=== PATIENT | male | born 1930 | race Two or more races ===

== ENCOUNTER 2018-11-15 13:59 | Inpatient (IN) | payer MEDICARE ==
[~2018-11-15] VITALS: Ht 152.4 cm; Wt 40.0 kg
[2018-11-15] VITALS (22 sets, daily range): BP systolic 86–147; BP diastolic 59–105; PULSE 53–70; RESP 10–23; Ht 152.4 cm; Wt 40.0 kg
[2018-11-15] MEDS ORDERED: SOD CHLORIDE 0.9% 500 ML IV STA (14:02)
[2018-11-15] MEDS ORDERED: NORepinephrine 8MG/250 ML (PMX 250 ML IV STA (14:19)
[2018-11-15] MEDS ORDERED: CEFEPIME 2GM/50 ML (PMX) 50 ML IVPB STA (14:19)
[2018-11-15] MEDS ORDERED: SODIUM CHLORIDE 0.9% 1L BAG IV* STA (14:19)
[2018-11-15] MEDS ORDERED: METO-335 PO (14:28)
[2018-11-15] MEDS ORDERED: HYDR-3029 PO (14:28)
[2018-11-15] MEDS ORDERED: SERT25TA83 PO (14:29)
[2018-11-15] MEDS ORDERED: ESOM40CA PO (14:29)
[2018-11-15] MEDS ORDERED: RIVA15TA PO (14:29)
[2018-11-15] MEDS ORDERED: TRIA15CR55 TOP (14:29)
[2018-11-15] MEDS ORDERED: VANCOMYCIN 1 GM (PMX) 250 ML IVPB ONE (14:30)
[2018-11-15] MEDS ORDERED: QUET25TA33 PO (14:30)
[2018-11-15] MEDS ORDERED: NALOXONE (0.4 MG/ML) INJ IV ONE (14:30)
[2018-11-15] MEDS ORDERED: TAMS0.4C2 PO (14:30)
[2018-11-15] MEDS ORDERED: MEMA21CA PO (14:30)
[2018-11-15] MEDS ORDERED: DONE5TAB7 PO ×2 (14:31→14:32)
[2018-11-15] MEDS ORDERED: BIMA5DRO BOTH EYES (14:32)
[2018-11-15] MEDS ORDERED: BRIM15DR2 BOTH EYES (14:33)
[2018-11-15] MEDS ORDERED: LIDO700A45 TP (14:34)
[2018-11-15] MEDS ORDERED: FENTAnyl 50 MCG/ML VIAL ONE (15:05)
[2018-11-15] MEDS ORDERED: LIDOCAINE 1% (MDV) 20 ML INJ ONE (15:05)
[2018-11-15] MEDS ORDERED: FENTAnyl 50 MCG/ML VIAL IV ONE (15:30)
[2018-11-15] MEDS ORDERED: ACETAMINOPHEN 650 MG SUPP PR PRN (16:00)
[2018-11-15] MEDS ORDERED: ACETAMINOPHEN 325 MG TAB PO PRN (16:00)
[2018-11-15] MEDS ORDERED: ONDANSETRON 4 MG INJ IV PRN (16:00)
[2018-11-15] MEDS ORDERED: NACL 0.9% 3 ML SYG IV SCH (16:00)
--- NOTE | 2018-11-15 16:07 | ERD ---
ER Documentation Chief Complaint Chief Complaint ALOC x 1 hour responds to pain opens eyes when stimulated HPI This is an 79-year-old male with a prior history of dementia, hypertension, who presents with increased weakness, and confusion. Patient lives at home, 9 1 was called by a engineering document control clerk. History was limited secondary to patient's altered mental state, but EMS states that in route the patient was noted to be hypotensive. ROS All systems reviewed and are negative except as per history of present illness. Medications Home Meds Reported Medications Lidocaine (Lidocaine) 1 Each Adh..patch, 1 EACH TP DAILY 11/15/18 Brimonidine Tartrate* (Alphagan P*) 0.1%-15 Ml Opht Drops, 1 DROP BOTH EYES BID, #1 EA 11/15/18 Bimatoprost* (Lumigan*) 0.01%-5 Ml Opht Drops, 1 DROP BOTH EYES HS, EA 11/15/18 Donepezil* (Donepezil*) 5 Mg Tablet, 5 MG PO DAILY, #30 TAB 11/15/18 Memantine* (Namenda* XR) 21 Mg Cap.spr.24, 21 MG PO DAILY, #30 TAB 11/15/18 Quetiapine Fumarate* (Quetiapine Fumarate*) 25 Mg Tablet, 25 MG PO HS, TAB 11/15/18 Tamsulosin Hcl* (Tamsulosin Hcl*) 0.4 Mg Cap.er.24h, 0.4 MG PO HS, CAP 11/15/18 Esomeprazole Mag Trihydrate (Nexium) 40 Mg Capsule.dr, 40 MG PO DAILY, #30 CAP 11/15/18 Sertraline Hcl* (Sertraline Hcl*) 25 Mg Tablet, 25 MG PO DAILY, #30 TAB 11/15/18 Rivaroxaban* (Xarelto*) 15 Mg Tablet, 15 MG PO DAILY, TAB 11/15/18 Triamcinolone Acetonide* (Kenalog*) 0.1%-15GM Cr, 1 APPLIC TOP BID, #1 TUB 11/15/18 Metoprolol Succinate* (Toprol XL*) 25 Mg Tab.sr.24h, 25 MG PO DAILY, #30 TAB 11/15/18 Hydroxyzine Hcl* (Hydroxyzine Hcl*) 10 Mg Tablet, 10 MG PO BID PRN for ITCHING, #30 TAB 11/15/18 Discontinued Reported Medications Donepezil* (Donepezil*) 5 Mg Tablet, 5 MG PO DAILY, #30 TAB 11/15/18 Allergies Allergies: Coded Allergies: No Known Allergy (Unverified , 11/15/18) PMhx/Soc Hx Cardiac Disorders: Yes (htn, cholesterol) Hx Psychiatric Problems: No Hx Miscellaneous Medical Probl: No Hx Alcohol Use: Yes (occasionally in the past) Hx Substance Use: No Hx Tobacco Use: Yes Smoking Status: Former smoker Physical Exam Vitals Vital Signs Date Temp Pulse Resp B/P (MAP) Pulse Ox O2 O2 Flow FiO2 Time Delivery Rate 11/15/18 64 20 81/64 (70) 96 Room Air 15:55 11/15/18 60 18 144/72 96 Room Air 15:43 (96) 11/15/18 60 20 110/72 100 Mask 6.0 15:15 (85) 11/15/18 Simple 10 14:20 Mask 11/15/18 97.8 56 18 45/34 (38) 99 14:10 Physical Exam Const: Thin cachectic male Head: Atraumatic Eyes: Normal Conjunctiva, pupils are pink ENT: Normal External Ears, Nose and Mouth. Oral mucosa is dry Neck: Full range of motion. No meningismus. Resp: Clear to auscultation bilaterally Cardio: Regular rate and rhythm, no murmurs Abd: Soft, non tender, non distended. Normal bowel sounds Skin: No petechiae or rashes Back: No midline or flank tenderness Ext: No cyanosis, or edema Neur: Patient moves all 4 extremities, he was months of pain, he is Macedonian speaking, and appears to be saying some words although cannot ascertain if these are organized Psych: Unable to be assessed Result Diagram: 11/15/18 1425 11/15/18 1425 Results 24 hrs Laboratory Tests Test 11/15/18 14:25 11/15/18 14:29 White Blood Count 8.7 10^3/ul Red Blood Count 3.94 10^6/ul Hemoglobin 12.8 g/dl Hematocrit 39.3 % Mean Corpuscular Volume 99.7 fl Mean Corpuscular Hemoglobin 32.5 pg Mean Corpuscular Hemoglobin Concent 32.6 g/dl Red Cell Distribution Width 12.7 % Platelet Count 161 10^3/UL Mean Platelet Volume 9.2 fl Immature Granulocytes % 0.500 % Neutrophils % 60.7 % Lymphocytes % 32.6 % Monocytes % 6.0 % Eosinophils % 0.0 % Basophils % 0.2 % Nucleated Red Blood Cells % 0.0 /100WBC Immature Granulocytes # 0.040 10^3/ul Neutrophils # 5.3 10^3/ul Lymphocytes # 2.8 10^3/ul Monocytes # 0.5 10^3/ul Eosinophils # 0.0 10^3/ul Basophils # 0.0 10^3/ul Nucleated Red Blood Cells # 0.0 10^3/ul Prothrombin Time 24.7 Sec Prothrombin Time Ratio 1.9 INR International Normalized Ratio 2.22 Sodium Level 142 mmol/L Potassium Level 3.7 mmol/L Chloride Level 107 mmol/L Carbon Dioxide Level 26 mmol/L Anion Gap 9 Blood Urea Nitrogen 43 mg/dl Creatinine 1.14 mg/dl Est Glomerular Filtrat Rate mL/min mL/min Glucose Level 166 mg/dl Calcium Level 9.4 mg/dl Total Bilirubin 0.4 mg/dl Direct Bilirubin 0.00 mg/dl Indirect Bilirubin 0.4 mg/dl Aspartate Amino Transf (AST/SGOT) 25 IU/L Alanine Aminotransferase (ALT/SGPT) 12 IU/L Alkaline Phosphatase 77 IU/L Troponin I 0.012 ng/ml Total Protein 7.1 g/dl Albumin 3.6 g/dl Globulin 3.50 g/dl Albumin/Globulin Ratio 1.02 Salicylates Level < 1.0 mg/dl Acetaminophen Level < 10.0 ug/ml Ethyl Alcohol Level < 10.0 mg/dl POC Venous Lactate 3.2 mmol/L Current Medications Medications Dose Sig/Vicente Start Time Status Last (Trade) Ordered Route PRN Stop Time Admin Dose Reason Admin Sodium 500 ml @ Q1H STAT 11/15/18 DC 11/15/18 Chloride 500 mls/hr IV 14:02 11/15/18 14:40 15:01 Naloxone 0.4 mg ONCE ONCE 11/15/18 DC 11/15/18 HCl IV 14:30 11/15/18 14:30 (Narcan) 14:31 250 ml @ ONCE STAT 11/15/18 11/15/18 Norepinephrin 7.5 mls/hr IV 14:19 11/16/18 14:42 e 23:38 Sodium 1,500 ml BOLUS OVER 2 11/15/18 DC 11/15/18 Chloride HOURS STAT 14:19 11/15/18 14:41 (NS) IV* 14:21 Cefepime HCl 50 ml @ ONCE STAT 11/15/18 DC 11/15/18 100 mls/hr IVPB 14:19 11/15/18 14:41 14:48 Vancomycin 250 ml @ ONCE ONCE 11/15/18 11/15/18 HCl 125 mls/hr IVPB 14:30 11/15/18 15:48 16:29 Fentanyl 75 mcg ONCE ONCE 11/15/18 DC 11/15/18 (Sublimaze) IV 15:30 11/15/18 15:12 15:31 Lidocaine 20 ml STK-MED 11/15/18 DC (Xylocaine ONCE .ROUTE 15:05 11/15/18 1% (Mdv) 20 15:06 ml) Fentanyl 100 mcg STK-MED 11/15/18 DC (Sublimaze) ONCE .ROUTE 15:05 11/15/18 15:06 Sodium 1,000 ml @ Q10H IV 11/15/18 Chloride 100 mls/hr 15:36 IV Flush 3 ml PER 11/15/18 (NS 3 ml) PROTOCOL IV 16:00 Ondansetron 4 mg Q6H PRN 11/15/18 HCl (Zofran IV NAUSEA 16:00 Inj) AND/OR VOMITING 650 mg Q6H PRN 11/15/18 Acetaminophen PO PAIN 16:00 (Tylenol LEVEL 1-3 OR Tab) FEVER 650 mg Q6H PRN 11/15/18 Acetaminophen [place] PAIN 16:00 (Tylenol LEVEL 1-3 OR Supp) FEVER 40 mg DAILY@06 11/16/18 Pantoprazole IV 06:00 (Protonix Iv) Vancomycin VANCOMYCIN PER 11/15/18 UNV HCl (Vanco PER PHARMACY PROTOCOL XX 16:30 Iv Per Pharmacy) Cefepime HCl 50 ml @ Q12 IVPB 11/15/18 UNV 100 mls/hr 21:00 Procedures/MDM This 87-year-old male who presents with altered mental state and shock. I noticed that the patient had pinpoint pupils, trial of Narcan, however there was no response. CT brain was negative for acute intracranial findings, his lactate was noted 3.6. He had no signs of hypoxia, I do not suspect pulmonary embolism, cardiac ischemia is a consideration, however his EKG is nonischemic and his troponin is also negative. As sepsis is still in the differential, I feel is appropriate to treat with empiric broad-spectrum antibiotics. He was trialed with 30 cc/kg bolus of IV fluids, he did not respond to this and was started on pressors. He has no fever no leukocytosis, at this time he does not have a clear source of infection thus I do not suspect septic shock, the patient will be admitted for undifferentiated shock. EKG: Rate/Rhythm: Normal Sinus Rhythm QRS, ST, T-waves: No changes consistent w/ acute ischemia Impression: No evidence of ischemia or arrhythmia Critical Care Time: 35 minutes Treatments/Evaluations: Close monitoring and treatment of unstable vital signs, cardiorespiratory, and neurologic status, while maintaining tight balance of fluid, respiratory, and cardiac interventions. This time includes discussing the case with the patient and the patient's family. This time does not include all procedures stated elsewhere in this record. This time also includes reviewing old records, labs and radiological studies. This time includes examining and re- examining the patient. Additionally, this time also includes arranging care with admitting and consulting physicians. Central Line Placement by me: Patient consented, sterilely draped, full prep, gown, glove, mask, time out performed. Anesthesia: 1% lidocaine locally Location: Right IJ Device: Multiple lumen Technique: Seldinger technique. Secured with suture. Results: Venous return from all ports with easy saline flush. No complications. Guide wire retrieved and disposed of. [ED Ultrasound: Central line placed by me using concurrent ultrasound guidance. [Chest X-ray 1V Interpreted by me: Central line in SVC, Normal soft tissue, No evidence of pneumothorax.] Departure Diagnosis: Primary Impression: Altered level of consciousness Additional Impression: Shock Condition: Critical SWETHA MALDONADO MD Nov 15, 2018 16:07
[2018-11-15] MEDS ORDERED: VANCOMYCIN IV PER PHARMACY XX SCH (16:30)
--- NOTE | 2018-11-15 16:40 | HP ---
Date/Time of Note Date/Time of Note DATE: 11/15/18 TIME: 16:40 Assessment/Plan VTE Prophylaxis Pharmacological prophylaxis: other Lines/Catheters IV Catheter Type (from Nrs): Saline Lock Assessment/Plan Hospital Course Objective Physical exam General: Patient is laying in bed and answers some questions in Azeri, 1 word answers Mentation: Patient is alert but not oriented Head: Normocephalic atraumatic Eyes: EOMI, pupils reactive to light Neck: Supple, nontender, midline Respiratory: Clear to auscultation bilaterally Cardiovascular: regular rate, no obvious murmurs Gastrointestinal: non-tender to palpation, bowel sounds heard. Neurological: Moves all extremities spontaneously Skin: Scaling on the thighs seen, no obvious open sores Assessment and plan Severe sepsis -Appears to be responding to fluid -Continue NS -Blood cultures, lactic acid noted -Broad-spectrum IV antibiotic Acute toxic metabolic encephalopathy -Likely volume depleted -With fluids already improving in mentation Bradycardia -Mild, patient is on beta-owen at home -Hold beta-owen for now Hypotension -Likely due to long depletion -Continue septic workup with IV antibiotic and cultures -Pressors as needed -IV fluids Syncope -Patient found down on floor, -CT negative -Patient had remote history of knee surgery, will get knee x-ray to confirm if there is a implant or not before getting MRI -Ultrasound carotid -Echo pending Moderate to severe dementia -According to son-in-law patient has had multiple instances of getting lost on a bus -Continue home meds when able Atrial fibrillation -Likely paroxysmal -On metoprolol and Xarelto at home -Hold Xarelto as patient is a fall risk at this time GERD -Protonix Mood disorder -Continue home meds when able BPH -Continue home meds when able Disposition -ICU care for now -Continue fluids, pressors as necessary -Continue infectious workup for severe sepsis Result Diagram: 11/15/18 1425 11/15/18 1425 Results 24hrs Laboratory Tests Test 11/15/18 14:25 11/15/18 14:29 White Blood Count 8.7 Red Blood Count 3.94 L Hemoglobin 12.8 L Hematocrit 39.3 L Mean Corpuscular Volume 99.7 Mean Corpuscular Hemoglobin 32.5 Mean Corpuscular Hemoglobin Concent 32.6 Red Cell Distribution Width 12.7 Platelet Count 161 Mean Platelet Volume 9.2 Immature Granulocytes % 0.500 H Neutrophils % 60.7 Lymphocytes % 32.6 Monocytes % 6.0 Eosinophils % 0.0 Basophils % 0.2 Nucleated Red Blood Cells % 0.0 Immature Granulocytes # 0.040 H Neutrophils # 5.3 Lymphocytes # 2.8 Monocytes # 0.5 Eosinophils # 0.0 Basophils # 0.0 Nucleated Red Blood Cells # 0.0 Prothrombin Time 24.7 H Prothrombin Time Ratio 1.9 INR International Normalized Ratio 2.22 Sodium Level 142 Potassium Level 3.7 Chloride Level 107 Carbon Dioxide Level 26 Anion Gap 9 Blood Urea Nitrogen 43 H Creatinine 1.14 Est Glomerular Filtrat Rate mL/min Glucose Level 166 Calcium Level 9.4 Total Bilirubin 0.4 Direct Bilirubin 0.00 Indirect Bilirubin 0.4 Aspartate Amino Transf (AST/SGOT) 25 Alanine Aminotransferase (ALT/SGPT) 12 L Alkaline Phosphatase 77 Troponin I 0.012 Total Protein 7.1 Albumin 3.6 Globulin 3.50 H Albumin/Globulin Ratio 1.02 Salicylates Level < 1.0 L Acetaminophen Level < 10.0 L Ethyl Alcohol Level < 10.0 H POC Venous Lactate 3.2 *H HPI/ROS Admit Date/Time Admit Date/Time Hx of Present Illness Patient is a Azeri male with past medical history significant for A. fib on Xarelto, dementia, BPH, mood disorder, GERD who presents to [facility] after caregiver found him on the floor in the bathroom. According to son-in-law at bedside patient's last well time was approximately yesterday when the caregiver came to the apartment to give him his medication and took his food. Currently patient responds in Azeri which is significantly better than when he was brought in by EMS. Per ED physician patient's blood pressure was originally as low as in the 40s however currently it is in the 80s with a mean arterial pressure above 65. Patient currently can speak in response to some questions however is not fully coherent yet at this time. Patient cannot fully participate in a physical exam nor can he fully move at his full strength. Patient does not to be in any severe pain in any extremities or in the stomach or chest from what can be observed. HPI is limited due to patient's neurological status PMH/Family/Social Past Medical History Medications Current Medications Norepinephrine 250 ml @ 7.5 mls/hr ONCE STAT IV Last administered on 11/15/18at 14:42; Admin Dose 3.75 MLS/HR; Start 11/15/18 at 14:19; Stop 11/16/18 at 23:38 Sodium Chloride 1,000 ml @ 100 mls/hr Q10H IV ; Start 11/15/18 at 15:36 IV Flush (NS 3 ml) 3 ml PER PROTOCOL IV ; Start 11/15/18 at 16:00 Ondansetron HCl (Zofran Inj) 4 mg Q6H PRN IV NAUSEA AND/OR VOMITING; Start 11/15/18 at 16:00 Acetaminophen (Tylenol Tab) 650 mg Q6H PRN PO PAIN LEVEL 1-3 OR FEVER; Start 11/15/18 at 16:00 Acetaminophen (Tylenol Supp) 650 mg Q6H PRN [place] PAIN LEVEL 1-3 OR FEVER; Start 11/15/18 at 16:00 Pantoprazole (Protonix Iv) 40 mg DAILY@06 IV ; Start 11/16/18 at 06:00 Vancomycin HCl (Vanco Iv Per Pharmacy) VANCOMYCIN PER PHARMACY PER PROTOCOL XX ; Start 11/15/18 at 16:30; Status UNV Cefepime HCl 50 ml @ 100 mls/hr Q12 IVPB ; Start 11/15/18 at 21:00; Status UNV Coded Allergies: No Known Allergy (Unverified , 11/15/18) Social History Smoking Status: Former smoker Exam/Review of Systems Vital Signs Vitals Vital Signs Date Temp Pulse Resp B/P (MAP) Pulse Ox O2 O2 Flow FiO2 Time Delivery Rate 11/15/18 64 20 81/64 (70) 96 Room Air 15:55 11/15/18 6.0 15:15 11/15/18 97.8 14:10 SWETHA GARDUNO Nov 15, 2018 16:40
[2018-11-15] MEDS: SOD CHLORIDE 0.9% 1,000 ML IV SCH (18:21)
[2018-11-15] MEDS ORDERED: CEFEPIME 1GM/50 ML (PMX) 50 ML IVPB SCH (21:00)
[2018-11-16] VITALS (28 sets, daily range): BP systolic 94–145; BP diastolic 54–91; PULSE 54–76; RESP 10–22
[2018-11-16] MEDS: CALAMINE/PRAMOXINE LOT 180 ML BTL TOP PRN ×3 (02:36→22:18)
[2018-11-16] MEDS: SOD CHLORIDE 0.9% 1,000 ML IV SCH (02:44)
[2018-11-16] MEDS: PANTOPRAZOLE 40 MG INJ IV SCH (05:55)
[2018-11-16] MEDS: CEFEPIME 1GM/50 ML (PMX) 50 ML IVPB SCH (09:21)
[2018-11-16] MEDS: SOD CHLORIDE 0.45% 1,000 ML IV SCH ×2 (09:21→22:17)
--- NOTE | 2018-11-16 12:13 | PN ---
Date/Time of Note Date/Time of Note DATE: 11/16/18 TIME: 12:10 Objective Vitals Vital Signs Date Temp Pulse Resp B/P (MAP) Pulse Ox O2 O2 Flow FiO2 Time Delivery Rate 11/16/18 70 17 117/77 100 Nasal 3.0 10:00 (90) Cannula 11/16/18 99.2 08:00 Intake and Output 11/15/18 11/15/18 11/16/18 1515:00 23:00 07:00 IntakeIntake Total 526.2 ml 903.7 ml OutputOutput Total 410 ml 340 ml BalanceBalance 116.2 ml 563.7 ml Results Result Diagram: 11/16/18 0330 11/16/18 0330 Medications Medications Current Medications Norepinephrine 250 ml @ 7.5 mls/hr ONCE STAT IV Last administered on 11/15/18at 14:42; Admin Dose 3.75 MLS/HR; Start 11/15/18 at 14:19; Stop 11/16/18 at 23:38 IV Flush (NS 3 ml) 3 ml PER PROTOCOL IV ; Start 11/15/18 at 16:00 Ondansetron HCl (Zofran Inj) 4 mg Q6H PRN IV NAUSEA AND/OR VOMITING; Start 11/15/18 at 16:00 Acetaminophen (Tylenol Tab) 650 mg Q6H PRN PO PAIN LEVEL 1-3 OR FEVER; Start 11/15/18 at 16:00 Acetaminophen (Tylenol Supp) 650 mg Q6H PRN [place] PAIN LEVEL 1-3 OR FEVER; Start 11/15/18 at 16:00 Pantoprazole (Protonix Iv) 40 mg DAILY@06 IV Last administered on 11/16/18at 05:55; Admin Dose 40 MG; Start 11/16/18 at 06:00 Vancomycin HCl (Vanco Iv Per Pharmacy) VANCOMYCIN PER PHARMACY PER PROTOCOL XX ; Start 11/15/18 at 16:30 Cefepime HCl 50 ml @ 100 mls/hr DAILY IVPB Last administered on 11/16/18at 09:21; Admin Dose 100 MLS/HR; Start 11/16/18 at 09:00 Calamine/Pramoxine (Caladryl Lotion) 1 applic QID PRN TOP ITCHING Last administered on 11/16/18at 09:24; Admin Dose 1 APPLIC; Start 11/16/18 at 02:30 Sodium Chloride 1,000 ml @ 70 mls/hr [id number] IV Last administered on 11/16/18at 09:21; Admin Dose 70 MLS/HR; Start 11/16/18 at 08:00 Vancomycin HCl 100 ml @ 100 mls/hr Q24H IVPB ; Start 11/16/18 at 18:00 Hydrocortisone (Hydrocortisone 0.5% Cr) 1 applic BID TOP ; Start 11/16/18 at 11:30 Diphenhydramine HCl (Benadryl) 25 mg Q6H PRN PO ITCHING; Start 11/16/18 at 11:30 Valacyclovir HCl (Valtrex) 1,000 mg Q24H PO ; Start 11/16/18 at 12:00; Stop 11/17/18 at 12:01 VTE Prophylaxis Risk score (from Ns)>0 risk: 7 [place] [facility] [place] Lines/Catheters IV Catheter Type: Alas in Place: No Assessment/Plan Hospital Course subjective doing much better, more awake Objective Physical exam General: Patient is laying in bed and answers some questions in Yakut and some faroese Mentation: Patient is alert and oriented x 2 Head: Normocephalic atraumatic Eyes: EOMI, pupils reactive to light Neck: Supple, nontender, midline Respiratory: Clear to auscultation bilaterally Cardiovascular: regular rate, no obvious murmurs Gastrointestinal: non-tender to palpation, bowel sounds heard. Neurological: Moves all extremities spontaneously Skin: Scaling on the thighs seen, no obvious open sores Assessment and plan Severe sepsis -resolving -Continue ivf for now -Blood cultures, lactic acid noted -Broad-spectrum IV antibiotic for now Acute toxic metabolic encephalopathy-resolving -Likely volume depleted -With fluids already improving in mentation Bradycardia -Mild, patient is on beta-owen at home -Hold beta-owen for now Hypotension -Likely due to long depletion -Continue septic workup with IV antibiotic and cultures -Pressors as needed, off pressors for the past 12 hours -IV fluids Syncope -Patient found down on floor, -CT negative -Patient had remote history of knee surgery, xray not showing metal, mri pending -Ultrasound carotid -Echo pending -mri pending Moderate to severe dementia -According to son-in-law patient has had multiple instances of getting lost on a bus -Continue home meds when able Atrial fibrillation -Likely paroxysmal -On metoprolol and Xarelto at home -Hold Xarelto as patient is a fall risk at this time GERD -Protonix Mood disorder -Continue home meds when able BPH -Continue home meds when able Disposition -ICU care for now, downgrade possible if BP holds -more than 40 minutes of critical care time spent on this encounter -Continue fluids, pressors as necessary -Continue infectious workup for severe sepsis -patient will likely need placement per son-in-law, PT/OT pending, CM notified SWETHA GARDUNO Nov 16, 2018 12:13
[2018-11-16] MEDS: HYDROCORTISONE 0.5% 28.35 GM CR TOP SCH ×2 (12:58→21:00)
[2018-11-16] MEDS: VALACYCLOVIR 500 MG TAB PO SCH (12:58)
--- NOTE | 2018-11-16 15:31 | RADRPT ---
Echocardiogram Report Patient Name: JN BURDICK Gender: Male Date: 1930 Study Date: 16-Nov-2018 Vice President Of Development: [facility] Location: [place] Height(Cm): 152 Weight(Kg): 40 BSA: 1.30 Ref. Physician: SWETHA GARDUNO Quality: Technically Difficult Study Procedures: Transthoracic echocardiogram with 2D, M-Mode, and doppler examination, no subcostal images. Indications: Syncope. 2D/M Mode Doppler Measurement Value Normal Ranges Measurement Value Normal Ranges LVIDd 2D 3.4 3.5 - 5.6 cm AV Peak Ignacio 1.3 m/sec LVIDs 2D 1.8 2.1 - 4.1 cm AV Peak PG 7.0 mmHg LVPWd 2D 1.3 0.6 - 1.1 cm LVOT Peak Ignacio 0.8 m/sec IVSd 2D 1.3 0.6 - 1.1 cm LVOT Peak PG 3.0 mmHg AoR Diam 2D 3.7 2.0 - 3.7 cm MV E Peak Ignacio 0.6 m/sec LA/Ao 2D 1 0 - 1 MV A Peak Ignacio 0.7 m/sec LA Dimen 2D 3.7 2.3 - 4.0 cm MV E/A 0.7 MV PHT 70.0 msec MV Decel Time 238 msec MV Decel [place] 2 Med E` Ignacio 0.1 m/sec MV E/A 0.7 MV PHT 70.0 msec MVA PHT 3.1 cm2 TR Peak Ignacio 3.0 m/sec TR Peak PG 35.0 mmHg PV Peak Ignacio 0.9 m/sec PV Peak PG 3.0 mmHg RVSP 45.0 mmHg Findings Left Ventricle: Normal left ventricular systolic function. Normal left ventricular cavity size. Mild concentric left ventricular hypertrophy. Ejection fraction is visually estimated at 0 %. Tissue Doppler/Mitral Doppler indices are consistent with impaired relaxation (Stage I diastolic dysfunction). E/E`=10. Right Ventricle: Normal right ventricular size. Normal right ventricular systolic function. Left Atrium: The left atrium is normal in size. Right Atrium: The right atrium is normal in size. Atrial Septum: Not well visualized. Mitral Valve: Normal appearance and function of the mitral valve with trace physiologic regurgitation. Aortic Valve: No significant aortic stenosis or insufficiency. Normal trileaflet aortic valve structure. Aortic sclerosis without significant stenosis. Tricuspid Valve: Normal appearance of the tricuspid valve. Estimated peak PA systolic pressure 45 mmHg. There is mild to moderate tricuspid regurgitation. Pulmonic Valve: Pulmonic valve not well visualized. There is trace to mild pulmonic regurgitation. Pericardium: Normal pericardium with no significant pericardial effusion. Aorta: Normal aortic root. IVC: The IVC is not well visualized. Pulmonary Artery: Normal pulmonary artery size. Conclusions Normal left ventricular systolic function. Normal left ventricular cavity size. Mild concentric left ventricular hypertrophy. Ejection fraction is visually estimated at 0 %. Tissue Doppler/Mitral Doppler indices are consistent with impaired relaxation (Stage I diastolic dysfunction). E/E`=10. Normal appearance and function of the mitral valve with trace physiologic regurgitation. No significant aortic stenosis or insufficiency. Normal trileaflet aortic valve structure. Aortic sclerosis without significant stenosis. Normal appearance of the tricuspid valve. Estimated peak PA systolic pressure 45 mmHg. There is mild to moderate tricuspid regurgitation. Electronically Signed By: Jude Conde 16-Nov-2018 15:30:39 -0800 Patient Name: JN BURDICK Study Date: 16-Nov-2018 [id number]
[2018-11-16] MEDS: DIPHENHYDRAMINE 25 MG CAP PO PRN (17:20)
[2018-11-16] MEDS ORDERED: VANCOMYCIN 500 MG (PMX) 100 ML IVPB SCH (18:00)
[2018-11-16] MEDS ORDERED: LORAZEPAM 2 MG INJ IV ONE (20:00)
[2018-11-16] MEDS ORDERED: LORAZEPAM 4 MG/ML VIAL ONE (20:01)
[2018-11-16] MEDS ORDERED: LORAZEPAM 4 MG/ML VIAL IV SCH (20:15)
[2018-11-16] MEDS ORDERED: DIPHENHYDRAMINE 50 MG INJ IV ONE (21:30)
[2018-11-16] MEDS ORDERED: HYDROmorphONE 1 MG/ML SYG IV ONE (21:30)
[2018-11-17] VITALS (18 sets, daily range): BP systolic 107–168; BP diastolic 59–88; PULSE 47–146; RESP 16–18
[2018-11-17] MEDS: DIPHENHYDRAMINE 25 MG CAP PO PRN (03:00)
[2018-11-17] MEDS ORDERED: DIPHENHYDRAMINE 50 MG INJ IV ONE (04:00)
[2018-11-17] MEDS: PANTOPRAZOLE 40 MG INJ IV SCH (05:34)
[2018-11-17] MEDS ORDERED: SOD CHLORIDE 0.9% 500 ML IV ONE (06:30)
[2018-11-17] MEDS: HYDROCORTISONE 0.5% 28.35 GM CR TOP SCH ×2 (09:26→21:53)
[2018-11-17] MEDS: CEFEPIME 1GM/50 ML (PMX) 50 ML IVPB SCH (09:27)
[2018-11-17] MEDS: SOD CHLORIDE 0.45% 1,000 ML IV SCH (13:10)
[2018-11-17] MEDS ORDERED: hydrOXYzine HCL 10 MG TAB PO PRN (15:00)
[2018-11-17] MEDS ORDERED: METOPROLOL 25 MG TAB PO SCH (15:00)
--- NOTE | 2018-11-17 15:14 | PN ---
Date/Time of Note Date/Time of Note DATE: 11/17/18 TIME: 14:24 Assessment/Plan VTE Prophylaxis Risk score (from Nsg)>0 risk: 8 SCD applied (from Ns): Yes Pharmacological prophylaxis: LMWH Lines/Catheters IV Catheter Type (from Nrsg): Peripheral IV Urinary Cath still in place: Yes Reason Cath still needed: other (indicate) Assessment/Plan Assessment/Plan 1. Hypotension from dehydration, improved 2. Dehydration resolved 3. Lactic acidosis from dehydration resolved with IVF 4. Syncope versus mechanical fall, negative MRI brain/echo cand carotid US, more likely a mechanical fall 5. Acute toxic metabolic encephalopathy-resolved 6. Paroxysmal SVT, metoprolol, hold for HR<55 7. Moderate to severe dementia 8. Atrial fibrillation, likely paroxysmal, aspirin instead of anticoagulants due to risk of fall 9. GERD, Protonix 10. Mood disorder, Continue home meds when able 11. BPH, flomax 12. Glaucoma, on eye drops 13. Anemia, chronic 14. No evidence of infection, d/c antibiotics Result Diagram: 11/17/18 0532 11/17/18 0532 Results 24hrs Laboratory Tests Test 11/17/18 05:32 White Blood Count 7.8 # Red Blood Count 3.22 L Hemoglobin 10.5 L Hematocrit 32.0 L Mean Corpuscular Volume 99.4 Mean Corpuscular Hemoglobin 32.6 Mean Corpuscular Hemoglobin Concent 32.8 Red Cell Distribution Width 12.7 Platelet Count 114 L Mean Platelet Volume 9.3 Immature Granulocytes % 0.300 Neutrophils % 73.2 Lymphocytes % 18.3 Monocytes % 8.0 Eosinophils % 0.1 Basophils % 0.1 Nucleated Red Blood Cells % 0.0 Immature Granulocytes # 0.020 Neutrophils # 5.7 Lymphocytes # 1.4 Monocytes # 0.6 Eosinophils # 0.0 Basophils # 0.0 Nucleated Red Blood Cells # 0.0 Sodium Level 143 Potassium Level 3.5 Chloride Level 109 Carbon Dioxide Level 27 Anion Gap 7 Blood Urea Nitrogen 26 H Creatinine 0.73 Est Glomerular Filtrat Rate mL/min Glucose Level 78 Calcium Level 8.3 L Phosphorus Level 2.4 L Magnesium Level 2.0 Subjective 24 Hr Interval Summary Free Text/Dictation afebrile, talked with the son at bedside Exam/Review of Systems Vital Signs Vitals Vital Signs Date Temp Pulse Resp B/P (MAP) Pulse Ox O2 O2 Flow FiO2 Time Delivery Rate 11/17/18 59 12:43 11/17/18 97.6 18 127/79 100 Nasal 12:00 (95) Cannula 11/17/18 2.0 08:30 Intake and Output 11/16/18 11/16/18 11/17/18 1515:00 23:00 07:00 IntakeIntake Total 790 ml 290 ml 600 ml OutputOutput Total 300 ml 100 ml 400 ml BalanceBalance 490 ml 190 ml 200 ml Exam Constitutional: alert, frail Head: normocephalic, atraumatic Eyes: nl conjunctiva, EOMI, nl lids, nl sclera, PERRL ENMT: nl external ears & nose, nl lips & teeth, nl nasal mucosa & septum Neck: supple, non-tender Respiratory: clear to auscultation, normal air movement; No congested cough, No crackles/rales, No diminished breath sounds, No intercostal retraction, No labored breathing, No respirations, No tactile fremitus, No wheezing, No other Cardiovascular: regular rate and rhythm, nl pulses; No bruits, No diastolic murmur, No edema, No gallop, No irregular rhythm, No jugular venous distention (JVD), No murmurs/extra sounds, No rub, No systolic murmur, No S3, No S4, No other Gastrointestinal: soft, nl liver, spleen, non-tender; No ascites, No bowel sounds, No distended, No firm, No hepatomegaly, No mass, No rebound or guarding, No splenomegaly, No surgical scars, No tender, No other Musculoskeletal: nl extremities to inspection Extremities: normal pulses; No calf tenderness, No cyanosis, No clubbing, No edema, No pitting pedal edema, No palpable cord, No tenderness, No other Neurological: ASSISTANT PROSECUTING ATTORNEY II-XII intact, confused Medications Medications Current Medications IV Flush (NS 3 ml) 3 ml PER PROTOCOL IV ; Start 11/15/18 at 16:00 Ondansetron HCl (Zofran Inj) 4 mg Q6H PRN IV NAUSEA AND/OR VOMITING; Start 11/15/18 at 16:00 Acetaminophen (Tylenol Tab) 650 mg Q6H PRN PO PAIN LEVEL 1-3 OR FEVER; Start 11/15/18 at 16:00 Acetaminophen (Tylenol Supp) 650 mg Q6H PRN [place] PAIN LEVEL 1-3 OR FEVER; Start 11/15/18 at 16:00 Pantoprazole (Protonix Iv) 40 mg DAILY@06 IV Last administered on 11/17/18 05:34; Admin Dose 40 MG; Start 11/16/18 at 06:00 Vancomycin HCl (Vanco Iv Per Pharmacy) VANCOMYCIN PER PHARMACY PER PROTOCOL XX ; Start 11/15/18 at 16:30 Cefepime HCl 50 ml @ 100 mls/hr DAILY IVPB Last administered on 11/17/18 09:27; Admin Dose 100 MLS/HR; Start 11/16/18 at 09:00 Calamine/Pramoxine (Caladryl Lotion) 1 applic QID PRN TOP ITCHING Last administered on 11/16/18 22:18; Admin Dose 1 APPLIC; Start 11/16/18 at 02:30 Sodium Chloride 1,000 ml @ 70 mls/hr [id number] IV Last administered on 11/17/18 13:10; Admin Dose 70 MLS/HR; Start 11/16/18 at 08:00 Vancomycin HCl 100 ml @ 100 mls/hr Q24H IVPB Last administered on 11/16/18 17:20; Admin Dose 100 MLS/HR; Start 11/16/18 at 18:00 Hydrocortisone (Hydrocortisone 0.5% Cr) 1 applic BID TOP Last administered on 11/17/18 09:26; Admin Dose 1 APPLIC; Start 11/16/18 at 11:30 Diphenhydramine HCl (Benadryl) 25 mg Q6H PRN PO ITCHING Last administered on 11/17/18 03:00; Admin Dose 25 MG; Start 11/16/18 at 11:30 SOL NELSON MD Nov 17, 2018 14:34
[2018-11-17] MEDS: NS + KCL 20 MEQ 1,000 ML IV SCH (15:32)
[2018-11-17] MEDS: SERTRALINE 50 MG TAB PO SCH (15:34)
[2018-11-17] MEDS: VALACYCLOVIR 500 MG TAB PO SCH (15:34)
[2018-11-17] MEDS: ENOXAPARIN 30 MG/0.3 ML SYG SC SCH (15:57)
[2018-11-17] MEDS ORDERED: VANCOMYCIN 750 MG (PMX) 250 ML IVPB SCH (16:00)
[2018-11-17] MEDS: DONEPEZIL 5 MG TAB PO SCH (18:01)
[2018-11-17] MEDS: BRIMONIDINE 0.1% 5 ML OPH BOTH EYES SCH (18:01)
[2018-11-17] MEDS: LATANOPROST 0.005% 2.5 ML OPH BOTH EYES SCH (21:53)
[2018-11-17] MEDS: TAMSULOSIN (SR) 0.4 MG CAP PO SCH (21:53)
[2018-11-18] VITALS (10 sets, daily range): BP systolic 150–180; BP diastolic 74–91; PULSE 53–85; RESP 16–18
[2018-11-18] MEDS: BRIMONIDINE 0.1% 5 ML OPH BOTH EYES SCH ×3 (01:28→21:16)
[2018-11-18] MEDS: NS + KCL 20 MEQ 1,000 ML IV SCH ×3 (01:28→21:16)
[2018-11-18] MEDS: PANTOPRAZOLE 40 MG INJ IV SCH (06:46)
[2018-11-18] MEDS: DONEPEZIL 5 MG TAB PO SCH (09:03)
[2018-11-18] MEDS: SERTRALINE 50 MG TAB PO SCH (09:03)
[2018-11-18] MEDS: HYDROCORTISONE 0.5% 28.35 GM CR TOP SCH ×2 (09:04→21:16)
[2018-11-18] MEDS: ENOXAPARIN 30 MG/0.3 ML SYG SC SCH (09:09)
--- NOTE | 2018-11-18 15:25 | PN ---
Date/Time of Note Date/Time of Note DATE: 11/18/18 TIME: 15:16 Assessment/Plan VTE Prophylaxis Risk score (from Ns)>0 risk: 6 SCD applied (from Ns): Yes Pharmacological prophylaxis: LMWH Lines/Catheters IV [facility]ter Type (from [facility]): Peripheral IV Urinary Cath still in place: No Assessment/Plan Assessment/Plan 1. Likely tachybrady arrhythmia, long run of PSVT on 11/16/2018, developed sinus bradycardia due to 42 after one dose of metoprolol 25 mg, cardiology consultation with Dr. Mercedes 2. Hypotension from dehydration, resolved 3. Dehydration resolved 4. Lactic acidosis from dehydration resolved with IVF 5. Syncope versus mechanical fall, negative MRI brain/echo cand carotid US, more likely a mechanical fall 6. Acute toxic metabolic encephalopathy-resolved 7. Moderate to severe dementia 8. Atrial fibrillation, likely paroxysmal, aspirin instead of anticoagulants due to risk of fall 9. GERD, Protonix 10. Mood disorder, Continue home meds when able 11. BPH, flomax 12. Glaucoma, on eye drops 13. Anemia, chronic 14. No evidence of infection, d/c antibiotics 11/17/2018 15. DVT prophylaxis: lovenox Result Diagram: 11/18/18 0703 11/18/18 0703 Results 24hrs Laboratory Tests Test 11/18/18 07:03 White Blood Count 7.1 Red Blood Count 3.62 L Hemoglobin 11.6 L Hematocrit 35.1 L Mean Corpuscular Volume 97.0 Mean Corpuscular Hemoglobin 32.0 Mean Corpuscular Hemoglobin Concent 33.0 Red Cell Distribution Width 12.2 Platelet Count 125 L Mean Platelet Volume 9.6 Immature Granulocytes % 0.300 Neutrophils % 74.0 Lymphocytes % 19.3 Monocytes % 6.3 Eosinophils % 0.0 Basophils % 0.1 Nucleated Red Blood Cells % 0.0 Immature Granulocytes # 0.020 Neutrophils # 5.3 Lymphocytes # 1.4 Monocytes # 0.5 Eosinophils # 0.0 Basophils # 0.0 Nucleated Red Blood Cells # 0.0 Sodium Level 138 Potassium Level 3.7 Chloride Level 105 Carbon Dioxide Level 27 Anion Gap 6 Blood Urea Nitrogen 13 # Creatinine 0.56 L Est Glomerular Filtrat Rate mL/min Glucose Level 88 Calcium Level 8.2 L Subjective 24 Hr Interval Summary Free Text/Dictation full alert, no distress, demented Exam/Review of Systems Vital Signs Vitals Vital Signs Date Temp Pulse Resp B/P (MAP) Pulse Ox O2 O2 Flow FiO2 Time Delivery Rate 11/18/18 60 14:13 11/18/18 97.8 16 153/79 91 11:50 (103) 11/18/18 Nasal 2.0 08:30 Cannula Intake and Output 11/17/18 11/17/18 11/18/18 1515:00 23:00 07:00 IntakeIntake Total 50 ml 480 ml 218 ml OutputOutput Total 650 ml 1700 ml BalanceBalance 50 ml -170 ml -1482 ml Exam Constitutional: alert, well developed Head: normocephalic, atraumatic Eyes: nl conjunctiva, EOMI, nl lids, PERRL ENMT: nl external ears & nose, nl lips & teeth, nl nasal mucosa & septum Neck: supple, non-tender Respiratory: clear to auscultation, normal air movement; No congested cough, No crackles/rales, No diminished breath sounds, No intercostal retraction, No labored breathing, No respirations, No tactile fremitus, No wheezing, No other Cardiovascular: regular rate and rhythm, nl pulses; No bruits, No diastolic murmur, No edema, No gallop, No irregular rhythm, No jugular venous distention (JVD), No murmurs/extra sounds, No rub, No systolic murmur, No S3, No S4, No other Gastrointestinal: soft, nl liver, spleen, non-tender Musculoskeletal: nl extremities to inspection Extremities: normal pulses; No calf tenderness, No cyanosis, No clubbing, No edema, No pitting pedal edema, No palpable cord, No tenderness, No other Neurological: SHIP MANAGER II-XII intact, nl speech, nl strength Medications Medications Current Medications IV Flush (NS 3 ml) 3 ml PER PROTOCOL IV ; Start 11/15/18 at 16:00 Ondansetron HCl (Zofran Inj) 4 mg Q6H PRN IV NAUSEA AND/OR VOMITING; Start 11/15/18 at 16:00 Acetaminophen (Tylenol Tab) 650 mg Q6H PRN PO PAIN LEVEL 1-3 OR FEVER; Start 11/15/18 at 16:00 Acetaminophen (Tylenol Supp) 650 mg Q6H PRN [place] PAIN LEVEL 1-3 OR FEVER; Start 11/15/18 at 16:00 Pantoprazole (Protonix Iv) 40 mg DAILY@06 IV Last administered on 11/18/18 06:46; Admin Dose 40 MG; Start 11/16/18 at 06:00 Calamine/Pramoxine (Caladryl Lotion) 1 applic QID PRN TOP ITCHING Last ad ministered on 11/16/18 22:18; Admin Dose 1 APPLIC; Start 11/16/18 at 02:30 Hydrocortisone (Hydrocortisone 0.5% Cr) 1 applic BID TOP Last administered on 11/18/18 09:04; Admin Dose 1 APPLIC; Start 11/16/18 at 11:30 Diphenhydramine HCl (Benadryl) 25 mg Q6H PRN PO ITCHING Last administered on 11/17/18 03:00; Admin Dose 25 MG; Start 11/16/18 at 11:30 Potassium Chloride/Sodium Chloride 1,000 ml @ 100 mls/hr Q10H IV Last administered on 11/18/18 11:00; Admin Dose 100 MLS/HR; Start 11/17/18 at 15:00 Latanoprost (Xalatan) 1 drop HS BOTH EYES Last administered on 11/17/18 21:53; Admin Dose 1 DROP; Start 11/17/18 at 21:00 Brimonidine Tartrate (Alphagan P 0.1%) 1 drop BID BOTH EYES Last administered o n 11/18/18 09:02; Admin Dose 1 DROP; Start 11/17/18 at 16:30 Donepezil HCl (Aricept) 5 mg DAILY PO Last administered on 11/18/18 09:03; Admin Dose 5 MG; Start 11/17/18 at 16:30 Hydroxyzine HCl (Atarax) 10 mg BID PRN PO ITCHING; Start 11/17/18 at 15:00 Sertraline HCl (Zoloft) 25 mg DAILY PO Last administered on 11/18/18 09:03; Admin Dose 25 MG; Start 11/17/18 at 15:00 Tamsulosin HCl (Flomax) 0.4 mg HS PO Last administered on 11/17/18 21:53; Admin Dose 0.4 MG; Start 11/17/18 at 21:00 Enoxaparin Sodium (Lovenox) 30 mg DAILY SC Last administered on 11/18/18at 09:09; Admin Dose 30 MG; Start 11/17/18 at 15:00 SOL NELSON MD Nov 18, 2018 15:25
--- NOTE | 2018-11-18 15:55 | CONS ---
Date/Time of Note Date/Time of Note DATE: 11/18/18 TIME: 15:40 Assessment/Plan Assessment/Plan Hospital Course 87 yo admitted after being found down on the ground, thought to be a mechanical fall per hospitalist notes, treated for dehydration. Course complicated by SVT (with possible afib at the onset) due to beta owen withdrawal, and then when dosed with a higher than home dose of metoprolol had sinus bradycardia in the 40's. Assessment/Plan Impression: Dehydration/fall SVT, paroxysmal, due to beta owen withdrawal Sinus bradycardia, in the 40's, when given a higher dose of metoprolol here in the hospital than what he receives at home Probable paroxysmal afib, was on Xarelto Severe dementia Recommendations: Patient takes metoprolol succinate 25 mg once a day at home. Will give met oprolol tartrate 12.5 mg bid here in the hospital, and observe. If he tolerates then would resume home metoprolol succinate 25 mg daily dosing. Agree with stopping Xarelto given fall risk. Result Diagram: 11/18/18 0703 11/18/18 0703 Results 24hrs Laboratory Tests Test 11/18/18 07:03 White Blood Count 7.1 Red Blood Count 3.62 L Hemoglobin 11.6 L Hematocrit 35.1 L Mean Corpuscular Volume 97.0 Mean Corpuscular Hemoglobin 32.0 Mean Corpuscular Hemoglobin Concent 33.0 Red Cell Distribution Width 12.2 Platelet Count 125 L Mean Platelet Volume 9.6 Immature Granulocytes % 0.300 Neutrophils % 74.0 Lymphocytes % 19.3 Monocytes % 6.3 Eosinophils % 0.0 Basophils % 0.1 Nucleated Red Blood Cells % 0.0 Immature Granulocytes # 0.020 Neutrophils # 5.3 Lymphocytes # 1.4 Monocytes # 0.5 Eosinophils # 0.0 Basophils # 0.0 Nucleated Red Blood Cells # 0.0 Sodium Level 138 Potassium Level 3.7 Chloride Level 105 Carbon Dioxide Level 27 Anion Gap 6 Blood Urea Nitrogen 13 # Creatinine 0.56 L Est Glomerular Filtrat Rate mL/min Glucose Level 88 Calcium Level 8.2 L Consultation Date/Type/Reason Admit Date/Time 11/15/18 Date of Consultation: Nov 18, 2018 Type of Consult cardiology Reason for Consultation SVT and sinus bradycardia Requesting Provider: SOL NELSON MD Hx of Present Illness 87 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 He is being treated for dehydration, and has been hydrated. Metoprolol was held upon presentation due to hypotension and bradycardia; at home he was on metoprolol succinate 25 mg po daily. In the morning on 11/17/18, he had a prolonged episode of a narrow complex tachycardia. Initial findings show an irregular rhythm which could be atrial fibrillation; however, the rate becomes quite regular a minute later and persists at a rate of 140-150 bpm and appears to be an SVT. The tachycardia spontaneously resolved after about an hour and a half. No 12-lead EKG was obtained during the episode. Metoprolol was restarted at 25 mg tartrate bid, and the patient had resultant bradycardia in the 40's. VT, QRS, and QT intervals appear normal, and no significant pauses have been documented. Patient cannot provide any significant history, and in fact is very difficult to examine. Subjective hx not possible: pt non-verbal Past Medical History Medical History: other (dementia, probable paroxysmal afib) Medications Current Medications IV Flush (NS 3 ml) 3 ml PER PROTOCOL IV ; Start 11/15/18 at 16:00 Ondansetron HCl (Zofran Inj) 4 mg Q6H PRN IV NAUSEA AND/OR VOMITING; Start 11/15/18 at 16:00 Acetaminophen (Tylenol Tab) 650 mg Q6H PRN PO PAIN LEVEL 1-3 OR FEVER; Start 11/15/18 at 16:00 Acetaminophen (Tylenol Supp) 650 mg Q6H PRN [place] PAIN LEVEL 1-3 OR FEVER; Start 11/15/18 at 16:00 Pantoprazole (Protonix Iv) 40 mg DAILY@06 IV Last administered on 11/18/18at 06:46; Admin Dose 40 MG; Start 11/16/18 at 06:00 Calamine/Pramoxine (Caladryl Lotion) 1 applic QID PRN TOP ITCHING Last administered on 11/16/18at 22:18; Admin Dose 1 APPLIC; Start 11/16/18 at 02:30 Hydrocortisone (Hydrocortisone 0.5% Cr) 1 applic BID TOP Last administered on 11/18/18at 09:04; Admin Dose 1 APPLIC; Start 11/16/18 at 11:30 Diphenhydramine HCl (Benadryl) 25 mg Q6H PRN PO ITCHING Last administered on 11/17/18 03:00; Admin Dose 25 MG; Start 11/16/18 at 11:30 Potassium Chloride/Sodium Chloride 1,000 ml @ 100 mls/hr Q10H IV Last administered on 11/18/18 11:00; Admin Dose 100 MLS/HR; Start 11/17/18 at 15:00 Latanoprost (Xalatan) 1 drop HS BOTH EYES Last administered on 11/17/18 21:53; Admin Dose 1 DROP; Start 11/17/18 at 21:00 Brimonidine Tartrate (Alphagan P 0.1%) 1 drop BID BOTH EYES Last administered on 11/18/18 09:02; Admin Dose 1 DROP; Start 11/17/18 at 16:30 Donepezil HCl (Aricept) 5 mg DAILY PO Last administered on 11/18/18 09:03; Admin Dose 5 MG; Start 11/17/18 at 16:30 Hydroxyzine HCl (Atarax) 10 mg BID PRN PO ITCHING; Start 11/17/18 at 15:00 Sertraline HCl (Zoloft) 25 mg DAILY PO Last administered on 11/18/18 09:03; Admin Dose 25 MG; Start 11/17/18 at 15:00 Tamsulosin HCl (Flomax) 0.4 mg HS PO Last administered on 11/17/18 21:53; Admin Dose 0.4 MG; Start 11/17/18 at 21:00 Enoxaparin Sodium (Lovenox) 30 mg DAILY SC Last administered on 11/18/18 09:09; Admin Dose 30 MG; Start 11/17/18 at 15:00 Metoprolol Tartrate (Lopressor) 12.5 mg BID PO ; Start 11/18/18 at 21:00; Status UNV Allergies: Coded Allergies: No Known Allergy (Unverified , 11/15/18) Social History Smoking Status: Never smoker Exam/Review of Systems Vital Signs Vitals Vital Signs Date Temp Pulse Resp B/P (MAP) Pulse Ox O2 O2 Flow FiO2 Time Delivery Rate 11/18/18 60 14:13 11/18/18 97.8 16 153/79 91 11:50 (103) 11/18/18 Nasal 2.0 08:30 Cannula Intake and Output 11/17/18 11/17/18 11/18/18 1515:00 23:00 07:00 IntakeIntake Total 50 ml 480 ml 218 ml OutputOutput Total 650 ml 1700 ml BalanceBalance 50 ml -170 ml -1482 ml Exam Constitutional: alert, frail Psych: confusion Head: normocephalic, atraumatic Eyes: nl conjunctiva, EOMI, nl lids ENMT: nl external ears & nose, other (mucosa dry) Neck: supple; No jvd, No bruits Respiratory: clear to auscultation (anteriorly) Cardiovascular: regular rate and rhythm; No murmurs/extra sounds Gastrointestinal: soft, non-tender Musculoskeletal: nl extremities to inspection Extremities: No edema Neurological: confused Skin: nl turgor Medications Medications Current Medications IV Flush (NS 3 ml) 3 ml PER PROTOCOL IV ; Start 11/15/18 at 16:00 Ondansetron HCl (Zofran Inj) 4 mg Q6H PRN IV NAUSEA AND/OR VOMITING; Start 11/15/18 at 16:00 Acetaminophen (Tylenol Tab) 650 mg Q6H PRN PO PAIN LEVEL 1-3 OR FEVER; Start 11/15/18 at 16:00 Acetaminophen (Tylenol Supp) 650 mg Q6H PRN [place] PAIN LEVEL 1-3 OR FEVER; Start 11/15/18 at 16:00 Pantoprazole (Protonix Iv) 40 mg DAILY@06 IV Last administered on 11/18/18at 06:46; Admin Dose 40 MG; Start 11/16/18 at 06:00 Calamine/Pramoxine (Caladryl Lotion) 1 applic QID PRN TOP ITCHING Last administered on 11/16/18at 22:18; Admin Dose 1 APPLIC; Start 11/16/18 at 02:30 Hydrocortisone (Hydrocortisone 0.5% Cr) 1 applic BID TOP Last administered on 11/18/18at 09:04; Admin Dose 1 APPLIC; Start 11/16/18 at 11:30 Diphenhydramine HCl (Benadryl) 25 mg Q6H PRN PO ITCHING Last administered on 11/17/18at 03:00; Admin Dose 25 MG; Start 11/16/18 at 11:30 Potassium Chloride/Sodium Chloride 1,000 ml @ 100 mls/hr Q10H IV Last administered on 1/8/19at 11:00; Admin Dose 100 MLS/HR; Start 11/17/18 at 15:00 Latanoprost (Xalatan) 1 drop HS BOTH EYES Last administered on 11/17/18 21:53; Admin Dose 1 DROP; Start 11/17/18 at 21:00 Brimonidine Tartrate (Alphagan P 0.1%) 1 drop BID BOTH EYES Last administered on 11/18/18 09:02; Admin Dose 1 DROP; Start 11/17/18 at 16:30 Donepezil HCl (Aricept) 5 mg DAILY PO Last administered on 11/18/18 09:03; Admin Dose 5 MG; Start 11/17/18 at 16:30 Hydroxyzine HCl (Atarax) 10 mg BID PRN PO ITCHING; Start 11/17/18 at 15:00 Sertraline HCl (Zoloft) 25 mg DAILY PO Last administered on 11/18/18 09:03; Admin Dose 25 MG; Start 11/17/18 at 15:00 Tamsulosin HCl (Flomax) 0.4 mg HS PO Last administered on 11/17/18 21:53; Admin Dose 0.4 MG; Start 11/17/18 at 21:00 Enoxaparin Sodium (Lovenox) 30 mg DAILY SC Last administered on 11/18/18 09:09; Admin Dose 30 MG; Start 11/17/18 at 15:00 Metoprolol Tartrate (Lopressor) 12.5 mg BID PO ; Start 11/18/18 at 21:00; Status UNV Imaging Imaging 12-lead EKG on 11/15/2018 shows sinus bradycardia at 53 bpm, with normal VT, QRS, and QT intervals. Rhythm strips are as described in the HPI KIRSTIN ROSENBERG Nov 18, 2018 15:53
[2018-11-18] MEDS: TAMSULOSIN (SR) 0.4 MG CAP PO SCH (21:15)
[2018-11-18] MEDS: LATANOPROST 0.005% 2.5 ML OPH BOTH EYES SCH (21:16)
[2018-11-18] MEDS: METOPROLOL 25 MG TAB PO SCH (21:16)
[2018-11-19] VITALS (8 sets, daily range): BP systolic 110–183; BP diastolic 67–92; PULSE 61–85; RESP 16–18
[2018-11-19] MEDS: PANTOPRAZOLE 40 MG INJ IV SCH (06:08)
[2018-11-19] MEDS: NS + KCL 20 MEQ 1,000 ML IV SCH ×3 (06:08→17:00)
[2018-11-19] MEDS: BRIMONIDINE 0.1% 5 ML OPH BOTH EYES SCH ×2 (08:44→20:52)
[2018-11-19] MEDS: SERTRALINE 50 MG TAB PO SCH (08:45)
[2018-11-19] MEDS: HYDROCORTISONE 0.5% 28.35 GM CR TOP SCH ×2 (08:45→20:52)
[2018-11-19] MEDS: DONEPEZIL 5 MG TAB PO SCH (08:45)
[2018-11-19] MEDS: METOPROLOL 25 MG TAB PO SCH ×2 (08:46→20:51)
[2018-11-19] MEDS: ENOXAPARIN 30 MG/0.3 ML SYG SC SCH (09:00)
--- NOTE | 2018-11-19 09:36 | PN ---
Date/Time of Note Date/Time of Note DATE: 11/19/18 TIME: 09:32 Assessment/Plan VTE Prophylaxis Risk score (from Ns)>0 risk: 6 SCD applied (from Ns): Yes Pharmacological prophylaxis: other (see hospitalist note) Lines/Catheters IV Catheter Type (from Nrsg): Central Line Central line still needed: No Urinary Cath still in place: No Assessment/Plan Hospital Course 87 yo admitted after being found down on the ground, thought to be a mechanical fall per hospitalist notes, treated for dehydration. Course complicated by SVT (with possible afib at the onset) due to beta owen withdrawal, and then when dosed with a higher than home dose of metoprolol had sinus bradycardia in the 40's. He has done well with metoprolol tartrate at 12.5 mg bid, which is equivalent to his home dose of metoprolol succinate 25 mg po daily. Assessment/Plan Impression: Dehydration/hypotension, improved PSVT, resolved Essential hypertension Recommendation: Resume metoprolol succinate 25 mg po daily tomorrow Will add a small dose of losartan 25 mg po daily for blood pressure control Result Diagram: 11/18/18 0703 11/18/18 0703 Subjective 24 Hr Interval Summary Free Text/Dictation Comfortable, smiling, speaking to me in Frisian. Exam/Review of Systems Vital Signs Vitals Vital Signs Date Temp Pulse Resp B/P (MAP) Pulse Ox O2 O2 Flow FiO2 Time Delivery Rate 11/19/18 78 08:28 11/19/18 97.3 18 130/73 98 Nasal 08:01 (92) Cannula 11/19/18 2.0 07:53 Intake and Output 11/18/18 11/18/18 11/19/18 1515:00 23:00 07:00 IntakeIntake Total 1000 ml 100 ml OutputOutput Total 1100 ml BalanceBalance 1000 ml -1000 ml Exam Constitutional: alert Head: normocephalic, atraumatic Eyes: nl conjunctiva, EOMI ENMT: nl external ears & nose Neck: No jvd, No bruits Respiratory: clear to auscultation Cardiovascular: regular rate and rhythm Gastrointestinal: soft, nl liver, spleen, non-tender Musculoskeletal: nl extremities to inspection Neurological: nl speech Skin: nl turgor Medications Medications Current Medications IV Flush (NS 3 ml) 3 ml PER PROTOCOL IV ; Start 11/15/18 at 16:00 Ondansetron HCl (Zofran Inj) 4 mg Q6H PRN IV NAUSEA AND/OR VOMITING; Start 11/15/18 at 16:00 Acetaminophen (Tylenol Tab) 650 mg Q6H PRN PO PAIN LEVEL 1-3 OR FEVER; Start 11/15/18 at 16:00 Acetaminophen (Tylenol Supp) 650 mg Q6H PRN [place] PAIN LEVEL 1-3 OR FEVER; Start 11/15/18 at 16:00 Pantoprazole (Protonix Iv) 40 mg DAILY@06 IV Last administered on 11/19/18 06:08; Admin Dose 40 MG; Start 11/16/18 at 06:00 Calamine/Pramoxine (Caladryl Lotion) 1 applic QID PRN TOP ITCHING Last administered on 11/16/18 22:18; Admin Dose 1 APPLIC; Start 11/16/18 at 02:30 Hydrocortisone (Hydrocortisone 0.5% Cr) 1 applic BID TOP Last administered on 11/19/18 08:45; Admin Dose 1 APPLIC; Start 11/16/18 at 11:30 Diphenhydramine HCl (Benadryl) 25 mg Q6H PRN PO ITCHING Last administered on 11/17/18 03:00; Admin Dose 25 MG; Start 11/16/18 at 11:30 Potassium Chloride/Sodium Chloride 1,000 ml @ 100 mls/hr Q10H IV Last administered on 11/19/18 09:02; Admin Dose 100 MLS/HR; Start 11/17/18 at 15:00 Latanoprost (Xalatan) 1 drop HS BOTH EYES Last administered on 11/18/18 21:16; Admin Dose 1 DROP; Start 11/17/18 at 21:00 Brimonidine Tartrate (Alphagan P 0.1%) 1 drop BID BOTH EYES Last administered on 11/19/18 08:44; Admin Dose 1 DROP; Start 11/17/18 at 16:30 Donepezil HCl (Aricept) 5 mg DAILY PO Last administered on 11/19/18 08:45; Ad min Dose 5 MG; Start 11/17/18 at 16:30 Hydroxyzine HCl (Atarax) 10 mg BID PRN PO ITCHING; Start 11/17/18 at 15:00 Sertraline HCl (Zoloft) 25 mg DAILY PO Last administered on 11/19/18 08:45; Admin Dose 25 MG; Start 11/17/18 at 15:00 Tamsulosin HCl (Flomax) 0.4 mg HS PO Last administered on 11/18/18at 21:15; Admin Dose 0.4 MG; Start 11/17/18 at 21:00 Enoxaparin Sodium (Lovenox) 30 mg DAILY SC Last administered on 11/19/18 09:00; Admin Dose 30 MG; Start 11/17/18 at 15:00 Metoprolol Tartrate (Lopressor) 12.5 mg BID PO Last administered on 11/19/18 08:46; Admin Dose 12.5 MG; Start 11/18/18 at 21:00 KIRSTIN ROSENBERG Nov 19, 2018 09:35
[2018-11-19] MEDS: LOSARTAN 25 MG TAB PO SCH (11:29)
[2018-11-19] MEDS ORDERED: ASPI-817 PO (13:13)
--- NOTE | 2018-11-19 13:27 | DS ---
Date/Time of Note Date/Time of Note DATE: 11/19/18 TIME: 13:14 Discharge Summary Admission/Discharge Info Admit Date/Time Nov 15, 2018 at 15:40 Discharge Date/Time Discharge Diagnosis 1. Syncope from hypotension versus mechanical fall, negative MRI brain/echo cand carotid US 2. Acute toxic metabolic encephalopathy-resolved 3. Hypotension from dehydration, resolved 4. Dehydration resolved 5. Lactic acidosis from dehydration resolved with IVF 6. PSVT, one run on 11/16/2018, on metoprolol 7. Moderate to severe dementia 8. Atrial fibrillation, sinus now, aspirin instead of anticoagulants due to risk of fall 9. GERD, Protonix 10. Mood disorder, Continue home meds when able 11. BPH, flomax 12. Glaucoma, on eye drops 13. Anemia, chronic 14. DVT prophylaxis: [facility] Course Patient is a [place] male with past medical history significant for A. fib on Xarelto, dementia, BPH, mood disorder, GERD who presents to [facility] after caregiver found him on the floor in the bathroom. According to son-in-law at bedside patient's last well time was approximately yesterday when the caregiver came to the apartment to give him his medication and took his food. Currently patient responds in Icelandic which is significantly better than when he was brought in by EMS. Per ED physician patient's blood pressure was originally as low as in the 40s however currently it is in the 80s with a mean arterial pressure above 65. It is not sure if patient had syncope or just a mechanical fall. Patient came in with hypotension that could be secondary to dehydration from laying on floor for hours without intake after the fall. Patient has sinus bradycardia at 50s on admission and then down to 42 after one dose of metoprolol on 11/17/2018. I dont feel it is cause of possible syncope. Patient's heart rate has been over 60s even he is on metoprolol 25 mg bid. Patient developed one long run of SVT with rate up to 140s. He will continue on toprol XL 25 mg po daily. I am not sure if he has history of atrial fibrillation that he was on xarelto at home, he is not a candidate for anticoagulant due to risk of fall. I will keep him on aspirin. It was thought infection with sepsis could be the reason of his hypotension. He was put on antibiotics on admission but there is no source of infection, antibiotics is stopped on 11/17/2018. The hypotension on admission is considered dehydration related. He responds to fluid rehydration well. Home Meds Active Scripts Aspirin* (Aspirin* EC) 81 Mg Tablet., 81 MG PO DAILY for 30 Days, TAB Prov:SOL NELSON MD 11/19/18 Reported Medications Lidocaine (Lidocaine) 1 Each Adh..patch, 1 EACH TP DAILY 11/15/18 Brimonidine Tartrate* (Alphagan P*) 0.1%-15 Ml Opht Drops, 1 DROP BOTH EYES BID, #1 EA 11/15/18 Bimatoprost* (Lumigan*) 0.01%-5 Ml Opht Drops, 1 DROP BOTH EYES HS, EA 11/15/18 Donepezil* (Donepezil*) 5 Mg Tablet, 5 MG PO DAILY, #30 TAB 11/15/18 Memantine* (Namenda* XR) 21 Mg Cap.spr.24, 21 MG PO DAILY, #30 TAB 11/15/18 Quetiapine Fumarate* (Quetiapine Fumarate*) 25 Mg Tablet, 25 MG PO HS, TAB 11/15/18 Tamsulosin Hcl* (Tamsulosin Hcl*) 0.4 Mg Cap.er.24h, 0.4 MG PO HS, CAP 11/15/18 Esomeprazole Mag Trihydrate (Nexium) 40 Mg Capsule.dr, 40 MG PO DAILY, #30 CAP 11/15/18 Sertraline Hcl* (Sertraline Hcl*) 25 Mg Tablet, 25 MG PO DAILY, #30 TAB 11/15/18 Triamcinolone Acetonide* (Kenalog*) 0.1%-15GM Cr, 1 APPLIC TOP BID, #1 TUB 11/15/18 Metoprolol Succinate* (Toprol XL*) 25 Mg Tab.sr.24h, 25 MG PO DAILY, #30 TAB 11/15/18 Hydroxyzine Hcl* (Hydroxyzine Hcl*) 10 Mg Tablet, 10 MG PO BID PRN for ITCHING, #30 TAB 11/15/18 Discontinued Reported Medications Rivaroxaban* (Xarelto*) 15 Mg Tablet, 15 MG PO DAILY, TAB 11/15/18 Donepezil* (Donepezil*) 5 Mg Tablet, 5 MG PO DAILY, #30 TAB 11/15/18 Follow-up Plan follow with PCP and cardiology in one week Primary Care Provider Not On Staff Doctor SOL NELSON MD Nov 19, 2018 13:26
[2018-11-19] MEDS: TAMSULOSIN (SR) 0.4 MG CAP PO SCH (20:51)
[2018-11-19] MEDS: LATANOPROST 0.005% 2.5 ML OPH BOTH EYES SCH (20:52)
[2018-11-20] VITALS (9 sets, daily range): BP systolic 155–169; BP diastolic 84–97; PULSE 56–76; RESP 16–18
[2018-11-20] MEDS: NS + KCL 20 MEQ 1,000 ML IV SCH (03:00)
[2018-11-20] MEDS: PANTOPRAZOLE 40 MG INJ IV SCH (05:21)
[2018-11-20] MEDS: LOSARTAN 25 MG TAB PO SCH (08:30)
[2018-11-20] MEDS: BRIMONIDINE 0.1% 5 ML OPH BOTH EYES SCH (08:31)
[2018-11-20] MEDS: SERTRALINE 50 MG TAB PO SCH (08:31)
[2018-11-20] MEDS: DONEPEZIL 5 MG TAB PO SCH (08:31)
[2018-11-20] MEDS: HYDROCORTISONE 0.5% 28.35 GM CR TOP SCH (08:32)
[2018-11-20] MEDS: ENOXAPARIN 30 MG/0.3 ML SYG SC SCH (08:37)
[2018-11-20] MEDS ORDERED: METOPROLOL (XL) 25 MG TAB PO SCH (09:00)
--- NOTE | 2018-11-20 11:05 | PN ---
Date/Time of Note Date/Time of Note DATE: 11/20/18 TIME: 11:05 Assessment/Plan VTE Prophylaxis Risk score (from Nsg)>0 risk: 5 Pharmacological prophylaxis: LMWH Lines/Catheters IV Catheter Type (from Nrsg): Central Line Central line still needed: No Urinary Cath still in place: No Assessment/Plan Assessment/Plan 1. Syncope from hypotension versus mechanical fall, negative MRI brain/echo cand carotid US 2. Acute toxic metabolic encephalopathy-resolved 3. Hypotension from dehydration, resolved 4. Dehydration resolved 5. Lactic acidosis from dehydration resolved with IVF 6. PSVT, one run on 11/16/2018, on metoprolol 7. Moderate to severe dementia 8. Atrial fibrillation, sinus now, off anticoagulants due to risk of fall 9. GERD, Protonix 10. Mood disorder, Continue home meds when able 11. BPH, flomax 12. Glaucoma, on eye drops 13. Anemia, chronic Result Diagram: 11/18/18 0703 11/18/18 0703 Subjective 24 Hr Interval Summary Free Text/Dictation no new issues, he tells me he's leaving today and he's jsut waiting on the a mbulance Exam/Review of Systems Vital Signs Vitals Vital Signs Date Temp Pulse Resp B/P (MAP) Pulse Ox O2 O2 Flow FiO2 Time Delivery Rate 11/20/18 Nasal 2.0 09:00 Cannula 11/20/18 75 08:00 11/20/18 99.2 16 169/84 100 07:27 (112) Intake and Output 11/19/18 11/19/18 11/20/18 1515:00 23:00 07:00 IntakeIntake Total 700 ml 1600 ml BalanceBalance 700 ml 1600 ml Exam Constitutional: alert Head: normocephalic, atraumatic Eyes: nl conjunctiva, EOMI ENMT: nl external ears & nose Neck: No jvd, No bruits Respiratory: clear to auscultation Cardiovascular: regular rate and rhythm Gastrointestinal: soft, nl liver, spleen, non-tender Musculoskeletal: nl extremities to inspection Neurological: nl speech Skin: nl turgor Medications Medications Current Medications IV Flush (NS 3 ml) 3 ml PER PROTOCOL IV ; Start 11/15/18 at 16:00 Ondansetron HCl (Zofran Inj) 4 mg Q6H PRN IV NAUSEA AND/OR VOMITING; Start 11/15/18 at 16:00 Acetaminophen (Tylenol Tab) 650 mg Q6H PRN PO PAIN LEVEL 1-3 OR FEVER; Start 11/15/18 at 16:00 Acetaminophen (Tylenol Supp) 650 mg Q6H PRN [place] PAIN LEVEL 1-3 OR FEVER; Start 11/15/18 at 16:00 Pantoprazole (Protonix Iv) 40 mg DAILY@06 IV Last administered on 11/20/18 05:21; Admin Dose 40 MG; Start 11/16/18 at 06:00 Calamine/Pramoxine (Caladryl Lotion) 1 applic QID PRN TOP ITCHING Last administered on 11/16/18 22:18; Admin Dose 1 APPLIC; Start 11/16/18 at 02:30 Hydrocortisone (Hydrocortisone 0.5% Cr) 1 applic BID TOP Last administered on 11/20/18 08:32; Admin Dose 1 APPLIC; Start 11/16/18 at 11:30 Diphenhydramine HCl (Benadryl) 25 mg Q6H PRN PO ITCHING Last administered on 11/17/18 03:00; Admin Dose 25 MG; Start 11/16/18 at 11:30 Potassium Chloride/Sodium Chloride 1,000 ml @ 100 mls/hr Q10H IV Last administered on 11/19/18 09:02; Admin Dose 100 MLS/HR; Start 11/17/18 at 15:00 Latanoprost (Xalatan) 1 drop HS BOTH EYES Last administered on 11/19/18 20:52; Admin Dose 1 DROP; Start 11/17/18 at 21:00 Brimonidine Tartrate (Alphagan P 0.1%) 1 drop BID BOTH EYES Last administered on 11/20/18 08:31; Admin Dose 1 DROP; Start 11/17/18 at 16:30 Donepezil HCl (Aricept) 5 mg DAILY PO Last administered on 11/20/18 08:31; Admin Dose 5 MG; Start 11/17/18 at 16:30 Hydroxyzine HCl (Atarax) 10 mg BID PRN PO ITCHING; Start 11/17/18 at 15:00 Sertraline HCl (Zoloft) 25 mg DAILY PO Last administered on 11/20/18 08:31; Admin Dose 25 MG; Start 11/17/18 at 15:00 Tamsulosin HCl (Flomax) 0.4 mg HS PO Last administered on 11/19/18at 20:51; Admin Dose 0.4 MG; Start 11/17/18 at 21:00 Enoxaparin Sodium (Lovenox) 30 mg DAILY SC Last administered on 11/20/18at 0 8:37; Admin Dose 30 MG; Start 11/17/18 at 15:00 Metoprolol Succinate (Toprol Xl) 25 mg DAILY PO Last administered on 11/20/18at 08:31; Admin Dose 25 MG; Start 11/20/18 at 09:00 Losartan Potassium (Cozaar) 25 mg DAILY PO Last administered on 11/20/18at 08:30; Admin Dose 25 MG; Start 11/19/18 at 10:00 MARVIN RAGSDALE Nov 20, 2018 11:05
[2018-11-20] MEDS ORDERED: LOSA25TA2 PO (11:08)
[2018-11-20] MEDS ORDERED: LOSARTAN 25 MG TAB PO ONE (13:00)
[2018-11-21] MEDS ORDERED: LOSARTAN 50 MG TAB PO SCH (09:00)
--- NOTE | 2018-11-23 08:40 | EN ---
Date/Time of Note Date/Time of Note DATE: 11/23/18 TIME: 08:37 Event Note Medicine Medicine Event Note DISCHARGE SUMMARY ADDENDUM Discharge Diagnosis 1. Syncope from hypotension versus mechanical fall, negative MRI brain/echo cand carotid US 2. Acute toxic metabolic encephalopathy-resolved 3. Hypotension from dehydration, resolved 4. Dehydration resolved 5. Lactic acidosis from dehydration resolved with IVF 6. PSVT, one run on 11/16/2018, on metoprolol 7. Moderate to severe dementia 8. Atrial fibrillation, sinus now, aspirin instead of anticoagulants due to risk of fall 9. GERD, Protonix 10. Mood disorder, Continue home meds when able 11. BPH, flomax 12. Glaucoma, on eye drops 13. Anemia, chronic 14. DVT prophylaxis: [facility] Course Per original discharging physician Patient is a [place] male with past medical history significant for A. fib on Xarelto, dementia, BPH, mood disorder, GERD who presents to [facility] after caregiver found him on the floor in the bathroom. According to son-in-law at bedside patient's last well time was approximately yesterday when the caregiver came to the apartment to give him his medication and took his food. Currently patient responds in Frisian which is significantly better than when he was brought in by EMS. Per ED physician patient's blood pressure was originally as low as in the 40s however currently it is in the 80s with a mean arterial pressure above 65. It is not sure if patient had syncope or just a mechanical fall. Patient came in with hypotension that could be secondary to dehydration from laying on floor for hours without intake after the fall. Patient has sinus bradycardia at 50s on admission and then down to 42 after one dose of metoprolol on 11/17/2018. I dont feel it is cause of possible syncope. Patient's heart rate has been over 60s even he is on metoprolol 25 mg bid. Patient developed one long run of SVT with rate up to 140s. He will continue on toprol XL 25 mg po daily. I am not sure if he has history of atrial fibrillation that he was on xarelto at home, he is not a candidate for anticoagulant due to risk of fall. I will keep him on aspirin. It was thought infection with sepsis could be the reason of his hypotension. He was put on antibiotics on admission but there is no source of infection, antibiotics is stopped on 11/17/2018. The hypotension on admission is considered dehydration related. He responds to fluid rehydration well. ADDENDUM: His discharge was held due to the fact that he was awaiting [facility], at this time placement has been obtained, I have evaluated the patient in detail, discharge instructions remain the same. His losartan was increased to 50 mg for better blood pressure control. He has been evaluated in detail by myself and is stable for discharge to [facility] facility. DISCHARGE MEDS Please review chart Follow-up Plan follow with PCP and cardiology in one week Primary Care Provider Not On Staff Doctor MARVIN RAGSDALE Nov 23, 2018 08:40
== END 2018-11-20 19:10 | DRG 314 ==
LOC: E/R 13:59 → ICU 15:40 → TEL 11-16 21:50
PROVIDERS: ADMIT Internal Medicine; ATTEND Internal Medicine
PROC: 02HV33Z Insertion of Infusion Device into Superior Vena Cava, Percutaneous Approach (ICD-10-PCS; principal; 2018-11-15)
DX: I95.89 Other hypotension (principal); E43 Unspecified severe protein-calorie malnutrition; G92 Toxic encephalopathy; Z68.1 Body mass index [BMI] 19.9 or less, adult; I47.1 Supraventricular tachycardia; E86.0 Dehydration; I48.0 Paroxysmal atrial fibrillation; Z79.01 Long term (current) use of anticoagulants; I95.9 Hypotension, unspecified; F03.90 Unspecified dementia, unspecified severity, without behavioral disturbance, psychotic disturbance, mood disturbance, and anxiety; K21.9 Gastro-esophageal reflux disease without esophagitis; F39 Unspecified mood [affective] disorder; N40.0 Benign prostatic hyperplasia without lower urinary tract symptoms; B02.9 Zoster without complications; Z79.02 Long term (current) use of antithrombotics/antiplatelets; H40.9 Unspecified glaucoma
CPT/HCPCS: 36415; 70450; 70551; 71045; 76937; 80048; 80053; 80061; 80307; 81001; 82140; 83036; 83605; 83735; 84100; 84443; 84484; 85025; 85610; 87040; 87081; 87400; 93005; 93306; 93880; 96374; 96375; 97116; 97162; 97166; 97530; 97535; C9113; J0692; J1170; J1200; J1650; J2060; J2310; J3010; J3370; J3480; J7030; J7040